=== PATIENT | female | born 1955 | race Two or more races ===

== ENCOUNTER 2018-10-17 06:19 | Emergency (ER) | payer OTHER ==
[~2018-10-17] VITALS: Ht 172.7 cm; Wt 95.3 kg
[2018-10-17] MEDS ORDERED: LEVOTHYROXINE25 MCG (06:21)
== END 2018-10-17 12:09 | disposition home or self-care (01) ==
LOC: ER 06:19
DX: S00.33XA Contusion of nose, initial encounter (principal); S00.83XA Contusion of other part of head, initial encounter; S80.02XA Contusion of left knee, initial encounter; S60.212A Contusion of left wrist, initial encounter; W18.39XA Other fall on same level, initial encounter; Y93.89 Activity, other specified; Y92.89 Other specified places as the place of occurrence of the external cause; Y99.8 Other external cause status

== ENCOUNTER 2024-01-24 23:42 | Emergency (ER) | payer OTHER ==
[~2024-01-24] VITALS: Ht 172.7 cm; Wt 88.9 kg
[~2024-01-24 23:42] MED LIST: LEVOTHYROXINE25 MCG
[2024-01-25] MEDS ORDERED: KETOROLAC TROMETHAMINE 60 MG VIAL IM STA (01:42)
[2024-01-25] MEDS ORDERED: ACETAMINOPHEN WITH CODEINE 1 UDTAB TABLET PO STA (01:43)
== END 2024-01-25 02:57 | disposition home or self-care (01) ==
LOC: ER 23:44
DX: S50.12XA Contusion of left forearm, initial encounter (principal); W19.XXXA Unspecified fall, initial encounter; Y93.89 Activity, other specified; Y92.89 Other specified places as the place of occurrence of the external cause; Y99.8 Other external cause status
CPT/HCPCS: 29125; 73090; 73130; 96372; 99283; J1885